=== PATIENT | female | born 1950 | race Caucasian/White ===

== ENCOUNTER → 2022-02-18 08:53 | Outpatient (CLI) | payer MEDICARE, SELFPAY ==
--- NOTE | ~2022-02-18 | DEXA_ITS ---
Bone Density Report Name: LYNDON FARIAS Age: 71 Sex: Female Ethnicity: White Date of : 1950 Indication: postmenopausal; screening for osteoporosis; height loss; Referring Provider: SERAFIN, MAIRA Delarosa Study: Bone densitometry was performed. Exam Date: February 18, 2022 Accession number: [id number] Bone Density: Region BMD T-score Z-score Classification AP Spine (L1-L4) 1.139 0.8 2.9 Normal Femoral Neck (Left) 0.799 -0.4 1.3 Normal Total Hip (Left) 0.983 0.3 1.8 Normal Femoral Neck (Right) 0.863 0.1 1.9 Normal Total Hip (Right) 0.976 0.3 1.8 Normal Total Hip Mean 0.980 0.3 1.8 Normal World Health Organization criteria for BMD impression classify patients as: Normal (T-score at or above -1.0), Osteopenia (T-score between -1.0 and -2.5), or Osteoporosis (T-score at or below -2.5). 10-year Fracture Risk: FRAX not reported because: All T-scores for Spine Total, Hip Total, Femoral Neck at or above -1.0 Previous Exams: Region Exam Age BMD T-score BMD Change BMD Change Date g/cm2 vs Baseline vs Previous AP Spine(L1-L4) 02/18/2022 71 1.139 0.8 -0.001 0.005 06/17/2017 66 1.133 0.8 -0.006 -0.015 11/21/2010 60 1.148 0.9 0.009 0.009 10/02/2006 56 1.139 0.8 Total Hip(Left) 02/18/2022 71 0.983 0.3 -0.023 -0.015 06/17/2017 66 0.998 0.5 -0.009 0.062* 11/21/2010 60 0.936 -0.1 -0.071* -0.071* 10/02/2006 56 1.006 0.5 Total Hip(Right) 02/18/2022 71 0.976 0.3 -0.019 -0.006 06/17/2017 66 0.982 0.3 -0.013 0.062* 11/21/2010 60 0.921 -0.2 -0.074* -0.074* 10/02/2006 56 0.995 0.4 *Denotes significance at 95% confidence level, LSC for AP Spine = 0.022 g/cm2, LSC for Total Hip = 0.027 g/cm2 Clinical Information Provided by Patient: Has used the following medications: Calcium Patient maximum height was 68 Menopause Age: 55 Drinks caffeinated beverages Onset of menses at age 16 Number of children 3 Impression: The patient has normal bone mass. No significant bone loss was observed. Discussion: BONE DENSITY IS ABOVE THE MINIMUM DESIRABLE LEVEL AT ALL SKELETAL SITES TESTED. This patient?s bone mineral density is above the minimum desirable level (T-score -1.0 or better) at all sites measured. The patient should follow a healthfu
== END ==
PROVIDERS: PCP Internal Medicine Endocrinology, Diabetes & Metabolism; Visit Provider Internal Medicine Endocrinology, Diabetes & Metabolism
DX: M81.0 Age-related osteoporosis without current pathological fracture (principal)
CPT/HCPCS: 77080